=== PATIENT | female | born 1950 | race Native Hawaiian/Other Pacific Islander ===

== ENCOUNTER 2017-02-14 08:13 | Emergency (ER) | payer OTHER ==
[~2017-02-14] VITALS: Ht 154.9 cm; Wt 46.3 kg
[2017-02-14 08:22] VITALS: TEMP 97.5
[2017-02-14] MEDS ORDERED: ESCITALOPRAM5 MG PO (08:45)
[2017-02-14] MEDS ORDERED: NADOLOL20 MG OR (08:46)
[2017-02-14] MEDS ORDERED: METHO2.5 PO (08:46)
[2017-02-14] MEDS ORDERED: FOLI1TAB26 PO (08:47)
[2017-02-14 09:07] LABS: PLATELET COUNT 365 K/uL (152-353)
[2017-02-14 09:15] LABS: POTASSIUM 3.8 mmol/L (3.6-5.2); SODIUM 134 mmol/L (136-145)
[2017-02-14 09:34] VITALS: BP 146/82
== END 2017-02-14 09:49 | disposition home or self-care (01) ==
LOC: ED 08:13
DX: B96.81 Helicobacter pylori [H. pylori] as the cause of diseases classified elsewhere (principal); K29.60 Other gastritis without bleeding; S20.211A Contusion of right front wall of thorax, initial encounter
CPT/HCPCS: 80053; 85027; 86318; 96374; 99284; J3490

== ENCOUNTER 2018-03-15 13:13 | Outpatient (CLI) | payer OTHER ==
[~2018-03-15 13:13] MED LIST: ESCITALOPRAM5 MG PO; FOLI1TAB26 PO; METHO2.5 PO; NADOLOL20 MG OR
== END 2018-03-15 19:52 | disposition home or self-care (01) ==
LOC: RAD 13:13
DX: M06.09 Rheumatoid arthritis without rheumatoid factor, multiple sites (principal); M81.0 Age-related osteoporosis without current pathological fracture; Z79.899 Other long term (current) drug therapy; Z51.81 Encounter for therapeutic drug level monitoring

== ENCOUNTER 2018-11-08 09:42 | Inpatient (IN) | payer OTHER ==
[~2018-11-08] VITALS: Ht 157.5 cm; Wt 49.9 kg
[2018-11-08] VITALS (14 sets, daily range): BP systolic 84–106; BP diastolic 40–57; TEMP 97–99.3; Ht 157.5 cm; Wt 49.9 kg
[2018-11-08 10:35] LABS: PLATELET COUNT 310 K/uL (152-353)
[2018-11-08 10:46] LABS: POTASSIUM 3.2 mmol/L (3.6-5.2)
[2018-11-08] MEDS ORDERED: NADOLOL20 MG PO (16:06)
[2018-11-09] VITALS: BP 114/57; TEMP 98.4
[2018-11-09 04:00] VITALS: BP 107/58; TEMP 98.3
[2018-11-09 05:10] LABS: PLATELET COUNT 345 K/uL (152-353)
[2018-11-09 05:48] LABS: POTASSIUM 2.9 mmol/L (3.6-5.2)
[2018-11-09 08:00] VITALS: BP 90/42; TEMP 98.1
[2018-11-09 12:00] VITALS: BP 106/53; TEMP 98.1
[2018-11-09 16:04] VITALS: BP 104/59; TEMP 99.6
[2018-11-09 20:00] VITALS: BP 136/71; TEMP 99.6
[2018-11-10 00:09] VITALS: BP 114/71; TEMP 98.1
[2018-11-10 04:25] VITALS: BP 105/58; TEMP 100.1
[2018-11-10 06:09] LABS: PLATELET COUNT 361 K/uL (152-353)
[2018-11-10 06:24] LABS: POTASSIUM 4.3 mmol/L (3.6-5.2)
[2018-11-10 07:30] VITALS: BP 110/54; TEMP 100
[2018-11-10 12:00] VITALS: BP 125/62; TEMP 98
[2018-11-10 16:00] VITALS: BP 136/71; TEMP 97.9
[2018-11-10 20:19] VITALS: BP 144/78; TEMP 97.7
[2018-11-11] VITALS: BP 135/69; TEMP 97.5
[2018-11-11 04:12] VITALS: BP 124/68; TEMP 98.6
[2018-11-11 05:37] LABS: PLATELET COUNT 394 K/uL (152-353)
[2018-11-11 06:02] LABS: POTASSIUM 3.2 mmol/L (3.6-5.2)
[2018-11-11 08:19] VITALS: BP 122/63; TEMP 98.4
[2018-11-11] MEDS ORDERED: ULTRAM 50MG TAB PO (10:13)
[2018-11-11] MEDS ORDERED: ROBAXIN500 M1 PO (10:18)
== END 2018-11-11 11:30 | disposition home or self-care (01) | DRG 641 ==
LOC: ED 09:42 → MED/SURG 13:48
PROVIDERS: ADMIT Family Medicine
DX: E86.0 Dehydration (principal); K57.90 Diverticulosis of intestine, part unspecified, without perforation or abscess without bleeding; E83.51 Hypocalcemia; E87.6 Hypokalemia; E83.42 Hypomagnesemia; M62.838 Other muscle spasm; I95.89 Other hypotension; F43.29 Adjustment disorder with other symptoms; M06.9 Rheumatoid arthritis, unspecified; M25.512 Pain in left shoulder
CPT/HCPCS: 36415; 74022; 80053; 81000; 83735; 83880; 85027; 93005; 96360; 96361; 96374; 96375; 99284; J1160; J1885; J2060; J2175; J2550; J3475; J3480; J3490

== ENCOUNTER 2019-01-31 13:47 | Outpatient (CLI) | payer OTHER ==
[~2019-01-31 13:47] MED LIST changes: +NADOLOL20 MG PO; +ROBAXIN500 M1 PO; +ULTRAM 50MG TAB PO
[2019-01-31 14:20] LABS: PLATELET COUNT 430 K/uL (152-353)
[2019-01-31 14:41] LABS: POTASSIUM 4.5 mmol/L (3.6-5.2)
== END 2019-01-31 22:50 | disposition home or self-care (01) ==
LOC: LABW 13:47
PROVIDERS: Internal Medicine Rheumatology
DX: M06.09 Rheumatoid arthritis without rheumatoid factor, multiple sites (principal); M81.0 Age-related osteoporosis without current pathological fracture; Z79.891 Long term (current) use of opiate analgesic; Z79.899 Other long term (current) drug therapy
CPT/HCPCS: 36415; 80053; 82330; 83970; 85027; 85651

== ENCOUNTER 2019-04-28 11:26 | Outpatient (CLI) | payer OTHER ==
[2019-04-28 11:41] LABS: PLATELET COUNT 400 K/uL (152-353)
[2019-04-28 11:52] LABS: POTASSIUM 4.7 mmol/L (3.6-5.2)
== END 2019-04-28 23:40 | disposition home or self-care (01) ==
LOC: LABW 11:26
PROVIDERS: Nurse Practitioner Family
DX: M06.09 Rheumatoid arthritis without rheumatoid factor, multiple sites (principal); M18.0 Bilateral primary osteoarthritis of first carpometacarpal joints; Z79.899 Other long term (current) drug therapy
CPT/HCPCS: 36415; 80053; 85027; 85651; 86140